=== PATIENT | female | born 1955 | race Caucasian/White ===

== ENCOUNTER 2021-01-14 13:53 | Emergency (ER) | payer OTHER ==
[~2021-01-14] VITALS: Ht 162.6 cm; Wt 64.4 kg
[2021-01-14 13:56] VITALS: BP 152/85
--- NOTE | 2021-01-14 14:15 | NUR ---
LAB BEDSIDE WITH PATIENT
--- NOTE | 2021-01-14 14:19 | NUR ---
XRAY BEDSIDE WITH PATIENT
--- NOTE | 2021-01-14 14:21 | NUR ---
XRAY AT BEDSIDE
--- NOTE | 2021-01-14 14:30 | NUR ---
BACK FROM XRAY
[2021-01-14 14:31] LABS: BASOPHILS # (AUTO) 0.1 K/uL (0.00-0.22); BASOPHILS % (AUTO) 0.6 % (0.0-2.0); EOSINOPHILS # (AUTO) 0.1 K/uL (0-0.4); EOSINOPHILS % (AUTO) 0.7 % (0.0-4.0); HEMATOCRIT 37.1 % (36-48); HEMOGLOBIN 12.7 g/dL (12.0-16.0); LYMPHOCYTES % (AUTO) 10.3 % (20.5-51.1); MEAN CORPUSCULAR HEMOGLOBIN 32 pg (27-31); MEAN CORPUSCULAR HGB CONC 34 g/dL (33-37); MEAN CORPUSCULAR VOLUME 92.3 fL (80-94); MONOCYTES # (AUTO) 0.8 K/uL (0.8-1.0); MONOCYTES % (AUTO) 7.6 % (1.7-9.3); NEUTROPHILS % (AUTO) 80.8 % (42.2-75.2); PLATELET COUNT (AUTO) 457 K/uL (140-450); RED BLOOD CELL COUNT(AUTO) 4.02 MIL/uL (4.20-5.40); RED CELL DISTRIBUTION WIDTH 14.2 % (11.6-13.7); WHITE BLOOD COUNT (AUTO) 9.9 K/uL (4.8-10.8)
--- NOTE | 2021-01-14 14:38 | NUR ---
EKG WAS DONE AT [facility].
[2021-01-14 14:45] LABS: ALBUMIN 3.4 g/dL (3.4-5.0); ANION GAP 17.8 (8-16); CARBON DIOXIDE 23.1 mmol/L (21-32); CREATININE 0.7 mg/dL (0.6-1.3); POTASSIUM 3.9 mmol/L (3.5-5.1); TOTAL BILIRUBIN 0.4 mg/dL (0.0-1.0)
[2021-01-14] MEDS ORDERED: NACL 0.9% 1,000 ML IV ONE (15:25)
--- NOTE | 2021-01-14 16:10 | NUR ---
65 Y/O FEMALE BIBA FROM HOME C/O HALLUCINATIONS X1DAY S/P PCP TOOK PT OFF RX [id number]. DENIES FEVER/CHILLS. DENIES N/V/D. DENIES PAIN. DENIES SOB. DENIES CHEST PAIN. PMH: BIPOLAR, SCHIZOPHRENIA, DM, NV [id number] AGO NKA
[2021-01-14] MEDS ORDERED: LITH300T7 PO (17:05)
--- NOTE | 2021-01-14 17:15 | NUR ---
The patient's care was reviewed and supervised by Anabelle Curiel RN.
[2021-01-14 17:17] VITALS: BP 132/94
--- NOTE | 2021-01-14 17:18 | NUR ---
Patient discharged with v/s stable. Written and verbal after care instructions given and explained. Patient alert, oriented and verbalized understanding of instructions. Ambulatory with steady gait. All questions addressed prior to discharge. ID band removed. Patient advised to follow up with PMD. Rx of LITHIUM given. Opportunity to ask questions provided and answered.
== END 2021-01-14 17:17 | disposition home or self-care (01) ==
LOC: MED 13:53
DX: F48.9 Nonpsychotic mental disorder, unspecified (principal); F69 Unspecified disorder of adult personality and behavior; F20.9 Schizophrenia, unspecified; E11.9 Type 2 diabetes mellitus without complications; I25.2 Old myocardial infarction; F32.9 Major depressive disorder, single episode, unspecified; Z79.899 Other long term (current) drug therapy
CPT/HCPCS: 36415; 71045; 80053; 80178; 84484; 85025; 93005; 99285; J7030

== ENCOUNTER 2023-09-20 08:57 | Emergency (ER) | payer OTHER ==
[~2023-09-20] VITALS: Ht 152.4 cm; Wt 83.0 kg
[~2023-09-20 08:57] MED LIST: LITH300T7 PO
[2023-09-20 08:59] VITALS: BP 122/52; PULSE 72; RESP 16; TEMP 98.6; O2SAT 96
[2023-09-20] MEDS: KETOROLAC 30 MG/ML VIAL IVP ONE (09:52)
[2023-09-20 10:25] LABS: BASOPHILS % (AUTO) 0.2 % (0.0-2.0); EOSINOPHILS # (AUTO) 0.1 K/uL (0-0.4); EOSINOPHILS % (AUTO) 1.4 % (0.0-4.0); HEMATOCRIT 35.1 % (36-48); HEMOGLOBIN 11.3 g/dL (12.0-16.0); LYMPHOCYTES # (AUTO) 0.9 K/uL (2.5-16.5); LYMPHOCYTES % (AUTO) 11.7 % (20.5-51.1); MEAN CORPUSCULAR HEMOGLOBIN 27 pg (27-31); MEAN CORPUSCULAR HGB CONC 32 g/dL (33-37); MEAN CORPUSCULAR VOLUME 84.9 fL (80-94); MONOCYTES # (AUTO) 0.5 K/uL (0.8-1.0); MONOCYTES % (AUTO) 5.7 % (1.7-9.3); NEUTROPHILS # (AUTO) 6.5 K/uL (1.8-7.7); PLATELET COUNT (AUTO) 367 K/uL (140-450); RED BLOOD CELL COUNT(AUTO) 4.13 MIL/uL (4.20-5.40); RED CELL DISTRIBUTION WIDTH 15.2 % (11.6-13.7)
[2023-09-20] MEDS ORDERED: IBUP-2213 PO (10:40)
[2023-09-20] MEDS ORDERED: QUET200T PO (10:40)
[2023-09-20 10:43] LABS: ALBUMIN 3.3 g/dL (3.4-5.0); BILIRUBIN,DIRECT 0.1 mg/dL (0.0-0.3); TOTAL BILIRUBIN 0.2 mg/dL (0.0-1.0)
[2023-09-20 10:45] LABS: APPEARANCE,URINE SL CLOUDY (CLEAR); BILIRUBIN,URINE NEGATIVE (NEGATIVE); BLOOD, URINE TRACE-I (NEGATIVE); COLOR,URINE YELLOW (YELLOW); LEUKOCYTE ESTERASE ,URINE 3+ (NEGATIVE); NITRITE, URINE NEGATIVE (NEGATIVE); PROTEIN,URINE NEGATIVE (NEGATIVE); UGLUCOSE NEGATIVE (NEGATIVE); UROBILINOGEN,URINE 0.2 EU/dL (0.2 - 1)
[2023-09-20 10:55] LABS: ANION GAP 13.5 (8-16); CALCIUM 9.8 mg/dL (8.5-10.1); CARBON DIOXIDE 23.9 mmol/L (21-32); CREATININE 1.2 mg/dL (0.6-1.3); POTASSIUM 3.4 mmol/L (3.5-5.1)
[2023-09-20 11:00] LABS: BACTERIA,URINE FEW /HPF (None Seen); RBC,URINE 0-5 /HPF (0-5); SQUAMOUS EPITHELIAL CELL,UR 0-3 (FEW) /LPF (0-3 (FEW))
[2023-09-20 11:01] LABS: WHITE BLOOD CELL CASTS,URINE 0-3 /LPF (None Seen)
[2023-09-20] MEDS ORDERED: BACTO TP (11:13)
[2023-09-20] MEDS ORDERED: AMOX1TAB8 PO (11:23)
[2023-09-20 12:45] VITALS: BP 130/72; PULSE 68; RESP 16; TEMP 98.6; O2SAT 98
[2023-09-23] MEDS ORDERED: NITR100C7 PO (03:34)
== END 2023-09-20 12:45 | disposition home or self-care (01) ==
LOC: MED 08:57
DX: G89.29 Other chronic pain (principal); M54.50 Low back pain, unspecified; N39.0 Urinary tract infection, site not specified; F31.9 Bipolar disorder, unspecified; E11.9 Type 2 diabetes mellitus without complications; I21.9 Acute myocardial infarction, unspecified; Z79.1 Long term (current) use of non-steroidal anti-inflammatories (NSAID); Z79.899 Other long term (current) drug therapy
CPT/HCPCS: 36415; 80048; 80076; 81001; 83690; 85025; 87086; 87186; 96374; 99285; J1885

== ENCOUNTER 2023-11-20 12:55 | Emergency (ER) | payer OTHER ==
[~2023-11-20] VITALS: Ht 157.5 cm; Wt 86.2 kg
[~2023-11-20 12:55] MED LIST changes: +AMOX1TAB8 PO; +BACTO TP; +IBUP-2213 PO; +NITR100C7 PO; +QUET200T PO
[2023-11-20 13:00] VITALS: BP 180/100; PULSE 77; RESP 18; TEMP 98; O2SAT 97
[2023-11-20 14:31] LABS: BILIRUBIN,URINE NEGATIVE (NEGATIVE); BLOOD, URINE NEGATIVE (NEGATIVE); COLOR,URINE YELLOW (YELLOW); LEUKOCYTE ESTERASE ,URINE 1+ (NEGATIVE); NITRITE, URINE NEGATIVE (NEGATIVE); PH,URINE 6.5 (5.0-9.0); PROTEIN,URINE NEGATIVE (NEGATIVE); UGLUCOSE NEGATIVE (NEGATIVE); UROBILINOGEN,URINE 0.2 EU/dL (0.2 - 1)
[2023-11-20 14:32] LABS: APPEARANCE,URINE SLIGHTLY CLOUDY (CLEAR)
[2023-11-20 14:39] LABS: BACTERIA,URINE 3+ /HPF (None Seen); MUCUS,URINE None Seen /LPF (None Seen); RBC,URINE 0 /HPF (0-5); SQUAMOUS EPITHELIAL CELL,UR 4-10 (MOD) /LPF (0-3 (FEW))
[2023-11-20 14:51] VITALS: BP 159/81; PULSE 80; RESP 18; TEMP 98; O2SAT 100
[2023-11-20] MEDS ORDERED: IBUP-2213 PO (14:53)
[2023-11-20] MEDS ORDERED: CIPR500T4 PO (14:53)
[2023-11-22] MEDS ORDERED: CEPH500C16 PO (13:58)
== END 2023-11-20 16:48 ==
LOC: MED 12:55
DX: N39.0 Urinary tract infection, site not specified (principal); M79.662 Pain in left lower leg; I25.2 Old myocardial infarction; E11.9 Type 2 diabetes mellitus without complications; Z79.899 Other long term (current) drug therapy
CPT/HCPCS: 81001; 82948; 87086; 87186; 93971; 99284; Q0092